=== PATIENT | female | born 1980 | race Caucasian/White ===

== ENCOUNTER 2020-08-22 00:17 | Emergency (ER) | payer MEDICAID, SELFPAY ==
[2020-08-22 00:20] VITALS: BP 100/55; BP 132/84; PULSE 76; PULSE 91; RESP 16; TEMP 35.2; O2SAT 95; O2SAT 99; BMI 35.3
--- NOTE | 2020-08-22 00:57 | ED.ALCOHOL ---
HPI - Alcohol General Chief Complaint: ETOH/Substance Use Stated Complaint: etoh Time Seen by Provider: 08/22/20 00:24 Source: patient Mode of arrival: EMS Limitations: no limitations History of Present Illness HPI narrative: Patient comes to emergency room via EMS. Patient was found intoxicated, sleeping in her car which was parked in a gas station. Patient states she did not want to drive, therefore she took a nap in her car. Somebody called police, woke the patient up, and was given a choice to coming to the emergency room versus being arrested, patient decided to come to the emergency room. Patient is calm, alert, cooperative complaint: alcohol intoxication Last drink: Hours (ago) Chronic alcohol use: No Recent trauma: No Associated symptoms: denies other symptoms Treatments prior to arrival: none Related Data Allergies Allergy/AdvReac Type Severity Reaction Status Date / Time No Known Allergies Allergy Unverified 07/30/20 16:29 Review of Systems Review of Systems: Constitutional: No Weight loss, No Fever, No Chills, No Night Sweats, No Fatigue, No Malaise, mild slurry speech ENT/Mouth: No Hearing loss, No Ear Pain, No Nasal Congestion, No Sinus Pain, No Hoarseness, No sore throat, No Rhinorrhea, No Swallowing Difficulty Eyes: No Eye Pain, No Swelling, No Redness, No Foreign Body, No Discharge, No Vision Changes Cardiovascular: No Chest Pain, No SOB, No Dyspnea on Exertion, No Orthopnea, No Edema, No Palpitations Respiratory: No Cough, No Sputum, No Wheezing, No Smoke Exposure, No Dyspnea Gastrointestinal: No Nausea, No Vomiting, No Diarrhea, No Constipation, No abdominal Pain, No Hematochezia, No Melena Genitourinary: no irregular bleeding, No Dysuria, No Urinary Frequency, No Hematuria, No Urinary Incontinence, No Urgency, No Flank Pain, No Urinary Flow Changes, No Hesitancy Musculoskeletal: No joint pain, No Myalgias, No Joint Swelling Skin: No Skin Lesions, No rash Neuro: No Weakness, No Numbness, No Paresthesias, No Loss of Consciousness, No Dizziness, No Headache Psych: No Anxiety/Panic, No Depression, No SI/HI/AH/VH, No Social Issues, Heme/Lymph: No Bruising, No Bleeding,No Lymphadenopathy Endocrine: No Polyuria, No Polydipsia, No Temperature Intolerance [facility] Past Medical History Medical History (Updated 10/10/20 @ 01:01 by Michelle Woodruff MD) No known health problems Social History Social History Advance Directives: No Advance Directives Information Provided: No Physical Exam Vital Signs and I&O and Narrative: Vital Signs and I&O: Vital Signs Temp 95.3 F L 08/22/20 00:20 Pulse 91 08/22/20 00:20 Resp 16 08/22/20 00:20 BP 100/55 L 08/22/20 00:20 Pulse Ox 95 08/22/20 00:20 Intake & Output 08/21/20 08/21/20 08/22/20 06:59 18:59 06:59 Weight 79.379 kg Body Mass Index 35.3 Appearance: Alert. Oriented X3. No acute distress, mild slurred speech, calm, cooperative Eyes: Pupils equal, round and reactive to light. ENT: Pharynx normal. Neck: Normal inspection. Neck supple. No lymph nodes noted. No crepitus CVS: Normal heart rate and rhythm. Pulses normal. Normal S1 and S2 Respiratory: No respiratory distress. Breath sounds normal. No Wheezing. No rales Abdomen: Soft and nontender. No rigidity. No distention. good BS x4 Skin: Skin warm and dry. Normal skin color. Normal skin turgor. Extremities: No lower extremity edema. No lower extremity edema. No Lacerations. No Rash Neuro: Oriented X 3. No motor deficit. No sensory deficit. Moving all extermities. . Discharge Plan Discharge Clinical Impression: Alcoholic intoxication Patient Disposition: Home, Self-Care Instructions: Alcohol Intoxication (ED) Additional Instructions: If you have any worsening symptoms, any new symptoms, please return to the emergency room or call 911
== END 2020-08-22 03:51 | disposition home or self-care (01) ==
PROVIDERS: Emergency Provider Emergency Medicine
DX: F10.129 Alcohol abuse with intoxication, unspecified (principal); Y90.9 Presence of alcohol in blood, level not specified
CPT/HCPCS: 99284

== ENCOUNTER 2023-10-30 12:57 | Observation (INO) | payer MEDICAID, SELFPAY ==
--- NOTE | ~2023-10-30 | XR_ITS ---
EXAMINATION: XR CHEST CLINICAL INFORMATION: Cough. COMPARISON: 03/03/2017. TECHNIQUE: 2 views of the chest were obtained. FINDINGS: No significant abnormality is noted involving the heart, lungs, mediastinum, bony thorax or soft tissues. XR/XR chest 2V IMPRESSION: Unremarkable examination.
--- NOTE | 2023-10-30 12:59 | ECG_ITS ---
Test Reason : CHEST PAIN Blood Pressure : / mmHG Vent. Rate : 091 BPM Atrial Rate : 091 BPM P-R Int : 138 ms QRS Dur : 074 ms QT Int : 368 ms P-R-T Axes : 074 048 025 degrees QTc Int : 452 ms Normal sinus rhythm Possible Left atrial enlargement Low voltage QRS Nonspecific T wave abnormality Abnormal ECG No previous ECGs available Referred By: Neeta Craig Electronically Signed By:ARABELLA WILKINSON MD
[2023-10-30 14:45] VITALS: BP 148/91; PULSE 89; RESP 16; TEMP 37.1; O2SAT 90; BMI 37.6
--- NOTE | 2023-10-30 14:47 | ED.GENADULT ---
HPI - General Adult General Chief complaint: Upper Respiratory Symptoms Stated complaint: chest pain Time Seen by Provider: 10/30/23 23:03 Source: patient Mode of arrival: ambulatory Limitations: no limitations History of Present Illness HPI narrative: Patient smoker with no diagnosis of emphysema came here from [place] with cough for last few days , worse for last few days especially in the a.m. with mucopurulent expectoration no fever no chills no chest pain no leg swelling history of same in the past off and on never used an inhaler in the past Related Data Previous Rx's Medication Instructions Recorded albuterol sulfate 90 mcg/actuation 2 puff inhalation Q4-6H PRN 10/31/23 aerosol inhaler (ProAir HFA) shortness of breath or wheezing #8.5 grams cefuroxime axetil 500 mg tablet 500 mg PO BID 10 days #20 tabs 10/31/23 codeine 10 mg-guaifenesin 100 mg/5 10 ml PO Q6H PRN cough #237 mL 10/31/23 mL oral liquid doxycycline hyclate 100 mg tablet 100 mg PO BID #20 tabs 10/31/23 prednisone 20 mg tablet 40 mg (2 x 20 mg) PO DAILY #10 tabs 10/31/23 Allergies Allergy/AdvReac Type Severity Reaction Status Date / Time No Known Allergies Allergy Unverified 07/30/20 16:29 Review of Systems Review of Systems: Yes all other systems are reviewed and are negative PMFSH Past Medical History Medical History No known health problems Social History Social History Alcohol intake: current Alcohol intake frequency: 0-2 drinks per day Alcohol type: hard liquor Smoked in Last 30 Days: Yes Use of substances other than those prescribed or required for medical reasons: No Advance Directives: No Advance Directives Information Provided: No Physical Exam ED Vital Signs: Vital Signs - 24 hr 10/30/23 14:45 10/30/23 15:27 10/30/23 22:59 Temperature 98.7 F 98.6 F Pulse Rate 89 79 82 Pulse Rate [Monitor] Respiratory Rate 16 22 H 20 Blood Pressure 148/91 H 128/64 Pulse Oximetry 90 L 92 Oxygen Delivery Method Room Air Room Air 10/30/23 23:07 10/30/23 23:07 10/30/23 23:38 Temperature Pulse Rate 82 Pulse Rate [Monitor] 86 Respiratory Rate 20 Blood Pressure Pulse Oximetry 93 Oxygen Delivery Method Room Air BMI result Body Mass Index 37.6 Appearance: Alert. Oriented X3. No acute distress. Eyes: No pallor or icterus ENT: Pharynx normal. Oral Mucosa moist Neck: Normal inspection. Neck supple. CVS: Normal heart rate and rhythm. Pulses normal. Respiratory: Mild respiratory distress. Equal air entry bilateral, bilateral wheezing and rhonchi Abdomen: Soft and nontender. Bowel sounds are present, no mass palpable, no CVA tenderness Skin: Skin warm and dry. Normal skin color. Normal skin turgor. Extremities: No lower extremity edema. No calf tenderness Neuro: Oriented X 3. No motor deficit. Course Course Course Narrative: This is an RME: Additional HPI, ROS, PE not included below will be deferred to primary provider. This is a 30-kcpd-wfe-female presenting to the emergency department with a complaint of congestion, cough, subjective fevers x 1 week. patient hypoxic at 88% > placed on 1.5L of O2. Plan: Chest xray, EKG, labs. Medications Administered Generic Name Dose Route Start Last Admin Trade Name Freq PRN Reason Stop Dose Admin Albuterol/Ipratropium 3 ml 10/31/23 00:53 10/31/23 01:02 Albuterol/Iprat 2.5/0.5mg 3 Ml Ampul.Neb INHALE 3 ml Q4H PRN Administration Wheezing Discontinued Medications Generic Name Dose Route Start Last Admin Trade Name Freq PRN Reason Stop Dose Admin Albuterol Sulfate 8 puff 10/30/23 15:22 10/30/23 15:25 Albuterol Sulfate 90 Mcg 8 Gm Inhaler INHALE 10/30/23 15:23 8 puff ONCE ONE Administration Cefuroxime Axetil 500 mg 10/30/23 23:11 10/30/23 23:33 Cefuroxime Axetil 500 Mg Tablet PO 10/30/23 23:12 500 mg ONCE ONE Administration Albuterol Sulfate 2.5 mg/ 0 mg 10/30/23 23:11 10/30/23 23:37 Albuterol/Ipratropium 3 ml INHALE 10/30/23 23:12 5 dose ONCE ONE Administration Doxycycline Monohydrate 100 mg 10/30/23 23:11 10/30/23 23:33 Doxycycline Monohydrate 100 Mg Capsule PO 10/30/23 23:12 100 mg ONCE ONE Administration Methylprednisolone Sodium Succinate 125 mg 10/30/23 23:11 10/30/23 23:33 Methylprednisolone Sod Succ 125 Mg/2 Ml Vial IVPUSH 10/30/23 23:12 125 mg ONCE ONE Administration Potassium Bicarbonate 25 meq 10/30/23 23:11 10/30/23 23:32 Potassium Bicarbonate/Cit Ac 25 Meq Tablet.Eff PO 10/30/23 23:12 25 meq ONCE ONE Administration Potassium Chloride 20 meq 10/30/23 23:11 10/30/23 23:32 Potassium Chloride Er 20 Meq Tab.Er.Prt PO 10/30/23 23:12 20 meq ONCE ONE Administration Medical Decision Making Medical Decision Making [facility] Narrative: Patient with acute bronchitis with his workup negative potassium level was 2.8 likely from nebulizing treatment patient was given p.o. potassium advised to stop smoking and take antibiotics prednisone and cough. Drops Patient pulse ox dropped to 86% on ambulation will admit patient for hypoxia with chronic lung disease Differential Diagnosis Differential Diagnoses: The differential diagnosis associated with the presentation includes Acute bronchitis/pneumonia/CHF/viral pneumonia Admission/Observation Consideration of admission/observation: Escalation of care including admission/observation considered Consult Healthcare Provider Management of the patient was discussed with: Hospitalist Lab Data [facility] Lab Attestation statement: I reviewed the patient's lab results. 10/30/23 15:47 10/30/23 15:47 Labs: Lab Results 10/30/23 10/30/23 Range/Units 15:40 15:47 WBC 11.8 H (4.8-10.8) X10*3/uL RBC 3.84 L (4.20-5.50) X10*6/uL Hgb 14.0 (12.0-16.0) g/dl Hct 40.6 (37.0-47.0) % MCV 105.7 H (80.0-98.0) fL MCH 36.5 H (27.0-33.0) pg MCHC 34.5 (31.0-35.0) g/dl RDW 12.5 (11.0-16.0) % Plt Count 418 H (160-400) X10*3/uL MPV 9.1 L (9.4-12.3) fL Immature Gran % (Auto) 0.6 H (0.0-0.4) % Neut % (Auto) 79.1 H (45-73) % Lymph % (Auto) 14.1 L (20-40) % [place] % (Auto) 5.9 (2-11) % Eos % (Auto) 0.1 (0-4) % Baso % (Auto) 0.2 (0-2) % Lymph # (Auto) 1.7 (1.2-4.9) X10*3/uL [place] # (Auto) 0.7 (0.1-1.2) X10*3/uL Eos # (Auto) 0.0 (0.0-0.4) X10*3/uL Baso # (Auto) 0.0 (0.0-0.2) X10*3/uL Abs Immat Gran (auto) 0.07 H (0.00-0.03) X10*3/uL Absolute Neuts (auto) 9.3 H (2.0-8.3) x10*3/uL Absolute Nucleated RBC 0.000 (0.0-0.012) X10*3/uL Nucleated RBC % (auto) 0.0 (0.0-0.2) /100WBC VBG pH 7.48 H (7.32-7.43) VBG pCO2 50 mmHg VBG pO2 41 mmHg VBG HCO3 37 H (22-26) mmol/L VBG O2 Saturation 66.0 % VBG Base Excess 12.1 mmol/L Sodium 140 (135-145) mmol/L Potassium 2.8 L (3.3-5.1) mmol/L Chloride 97 (96-108) mmol/L Carbon Dioxide 33 H (22-29) mmol/L Anion Gap 13 (12-20) BUN 5 L (9-16) mg/dL Creatinine 0.69 (0.5-1.4) mg/dL Estim Creat Clear Calc 94.9 Estimated GFR > 60 Random Glucose 99 (60-115) mg/dL Lactic Acid 1.4 (0.5-2.0) mmol/L Calcium 8.9 (8.4-10.2) mg/dL Magnesium 1.9 (1.6-2.6) mg/dL Total Bilirubin 0.8 (0.0-1.0) mg/dL Direct Bilirubin 0.3 (0.0-0.5) mg/dL AST 104 H (5-31) U/L ALT 151 H (0-31) U/L Alkaline Phosphatase 150 H (39-117) U/L Troponin I High Sens < 2.7 (<3.5-17.0) ng/L Total Protein 7.2 (6.5-8.0) g/dL Albumin 3.7 (3.5-5.0) g/dL Influenza Type A (PCR) NEGATIVE (Negative) Influenza Type B (PCR) NEGATIVE (Negative) RSV RNA Qual (PCR) NEGATIVE (Negative) SARS-CoV-2 RNA (RT-PCR) NEGATIVE (Negative) Independent Interpretation I performed an independent interpretation of an: Plain X-Ray Radiology Impression Discussion of test interpretation with radiology: I have reviewed the radiologist's reading. Critical Care Time Critical Care Time Critical Care Time: Yes Total Critical Care Time: 45 Attestation: The patient was critically ill with a high probability of imminent or life threatening deterioration. I spent greater than 50 minutes of discontinuous time evaluating the patient,delivering critical care at the bedside, discussing and evaluating pertinent data with consultants. Critical care time does not include time spent performing separately billable procedures or teaching. Total time spent performing critical care was 45 minutes. Discharge Plan Discharge Clinical Impression: Bronchitis, Acute hypoxemic respiratory failure Patient Disposition: Admitted As Inpatient
[2023-10-30] MEDS: Albuterol Sulfate 90 MCG 8 GM INHALER 8 PUFF INHALE (15:25)
[2023-10-30 15:27] VITALS: PULSE 79; RESP 22; O2SAT 95
[2023-10-30 15:54] LABS: MANUAL DIFF FLAG NO
[2023-10-30 15:58] LABS: Basophils Percent Auto 0.2 % (0-2); Eosinophils Percent Auto 0.1 % (0-4); Hematocrit 40.6 % (37.0-47.0); Imm Gran Abs Auto 0.07 X10*3/uL (0.00-0.03); Imm Gran Pct Auto 0.6 % (0.0-0.4); Lymphocytes Absolute Auto 1.7 X10*3/uL (1.2-4.9); Lymphocytes Percent Auto 14.1 % (20-40); Mean Corpuscular HGB Conc 34.5 g/dl (31.0-35.0); Mean Corpuscular Hemoglobin 36.5 pg (27.0-33.0); Mean Corpuscular Volume 105.7 fL (80.0-98.0); Mean Platelet Volume 9.1 fL (9.4-12.3); Monocytes Absolute Auto 0.7 X10*3/uL (0.1-1.2); Monocytes Percent Auto 5.9 % (2-11); Neutrophils Absolute Auto 9.3 x10*3/uL (2.0-8.3); Neutrophils Percent Auto 79.1 % (45-73); Platelet Count 418 X10*3/uL (160-400); Red Blood Count 3.84 X10*6/uL (4.20-5.50); Red Cell Distribution Width 12.5 % (11.0-16.0); White Blood Count 11.8 X10*3/uL (4.8-10.8)
[2023-10-30 15:58] LABS: Venous Blood Gas Refer to POC result
[2023-10-30 16:03] LABS: VBG Base Excess 12.1 mmol/L; VBG HCO3 37 mmol/L (22-26); VBG pCO2 50 mmHg; VBG pH 7.48 (7.32-7.43); VBG pO2 41 mmHg
[2023-10-30 16:08] LABS: Lactic Acid 1.4 mmol/L (0.5-2.0)
[2023-10-30 16:13] LABS: Alanine Aminotransferase 151 U/L (0-31); Albumin Level 3.7 g/dL (3.5-5.0); Alkaline Phosphatase 150 U/L (39-117); Anion Gap 13 (12-20); Aspartate Amino Transferase 104 U/L (5-31); Bilirubin Direct 0.3 mg/dL (0.0-0.5); Bilirubin Total 0.8 mg/dL (0.0-1.0); Blood Urea Nitrogen 5 mg/dL (9-16); Calcium 8.9 mg/dL (8.4-10.2); Carbon Dioxide 33 mmol/L (22-29); Chloride 97 mmol/L (96-108); Creatinine Clr Calc Pharmacy 94.9; Estimated Glomerular Filt Rate > 60; Glucose Random 99 mg/dL (60-115); Magnesium 1.9 mg/dL (1.6-2.6); Potassium 2.8 mmol/L (3.3-5.1); Sodium 140 mmol/L (135-145); Total Protein 7.2 g/dL (6.5-8.0)
[2023-10-30 16:21] LABS: Troponin-I High Sensitivity < 2.7 ng/L (<3.5-17.0)
[2023-10-30 16:33] LABS: Influenza A PCR NEGATIVE (Negative); Influenza B PCR NEGATIVE (Negative); Resp Syncy Virus RNA Qual PCR NEGATIVE (Negative); SARS COV2 PCR INHOUSE NEGATIVE (Negative)
[2023-10-30 22:59] VITALS: BP 128/64; PULSE 82; RESP 20; TEMP 37; O2SAT 92
[2023-10-30 23:07] VITALS: PULSE 86; O2SAT 93
[2023-10-30] MEDS: Potassium Chloride ER 20 MEQ TAB.ER.PRT PO (23:32)
[2023-10-30] MEDS: Potassium Bicarbonate/Cit AC 25 MEQ TABLET.EFF PO (23:32)
[2023-10-30] MEDS: Doxycycline Monohydrate 100 MG CAPSULE PO (23:33)
[2023-10-30] MEDS: methylPREDNISolone Sod Succ 125 MG/2 ML VIAL IVPUSH (23:33)
[2023-10-30] MEDS: cefuroxime axetiL 500 MG TABLET PO (23:33)
[2023-10-30] MEDS: Albuterol Sulfate 2.5 MG, Albuterol/Iprat 2.5/0.5MG 3 ML 3 ML INHALE (23:37)
[2023-10-30 23:38] VITALS: PULSE 82; RESP 20; O2SAT 93
--- NOTE | 2023-10-30 23:38 | PC.NURSE ---
pt medicated per jan. pt ambulatory with steady gait. duoneb started upon return from bathroom. call romero within reach.
[2023-10-31] VITALS (8 sets, daily range): BP systolic 115–131; BP diastolic 63–75; PULSE 80–112; RESP 16–24; TEMP 36.6–36.8; O2SAT 90–96
--- NOTE | 2023-10-31 00:56 | P.HPHOSP_ITS ---
History of Present Illness Date of Service: 10/31/23 Chief Complaint: Cough This is a 43-year-old female with no pertinent past medical history and not on prescription medications who presents to the emergency department for evaluation of cough, wheezing and shortness of breath. Patient states it started about 7 days prior to presentation. She started having nonproductive cough initially which subsequently became productive with clear sputum. Also had associated wheezing. Patient states she felt short of breath when she tried to walk around. Does not use inhaler at home. Never had a spirometry and does not have a efficiency engineer. Does not use any inhalers at home. Patient admits to smoking 1 pack of cigarettes per day and has been smoking for the last 25 years. No fever, chills, chest discomfort, palpitations, abdominal pain, changes in urinary or bowel habits. In the emergency department, patient was found to have wheezing and oxygen saturation dropped upon ambulation. Review of Systems 2 Constitutional: Constitutional: Reports no additional constitutional complaints Cardiovascular: Cardiovascular: Reports dyspnea on exertion Respiratory: Respiratory: Reports cough, Reports dyspnea on exertion and Reports wheezing Gastrointestinal: Gastrointestinal: Reports no additional gastrointestinal complaints Genitourinary: Genitourinary: Reports no additional female genitourinary complaints Allergic/Immunologic: Allergic/Immunologic: Reports wheezing [facility] Medical History (Updated 10/31/23 @ 05:43 by Jorge Baker MD) Tobacco use disorder No known health problems Social History Alcohol intake: current Alcohol intake frequency: 0-2 drinks per day Alcohol type: hard liquor Smoked in Last 30 Days: Yes Use of substances other than those prescribed or required for medical reasons: No Advance Directives: No Advance Directives Information Provided: No Meds Allergies Allergy/AdvReac Type Severity Reaction Status Date / Time No Known Allergies Allergy Unverified 07/30/20 16:29 Active Medications: Current Medications Potassium Chloride (Potassium Chloride Packet 20 Meq Packet) 40 meq PO ONCE ONE Stop: 10/31/23 00:54 Physical Exam 2 Vital Signs and Narrative: Vital Signs: Last Vital Signs Temp 98.6 F 10/30/23 22:59 Pulse 82 10/30/23 23:38 Resp 20 10/30/23 23:38 BP 128/64 10/30/23 22:59 Pulse Ox 93 10/30/23 23:07 O2 Del Method Room Air 10/30/23 23:07 BMI result Body Mass Index 37.6 Middle-aged female lying in bed in mild distress Neck supple, no JVD Regular rate and rhythm, S1-S2 heard Bilateral wheezing without crackles Abdomen soft nontender, no guarding, no rigidity Patient is awake, alert and oriented to self, place, time and person ; no focal motor deficit Psych: Normal mood No pedal edema Results Labs 10/31/23 05:04 10/31/23 05:04 Labs: Laboratory Results - last 24 hr 10/30/23 10/30/23 15:40 15:47 MCV 105.7 H MCH 36.5 H MCHC 34.5 RDW 12.5 Plt Count 418 H MPV 9.1 L Immature Gran % (Auto) 0.6 H Neut % (Auto) 79.1 H Lymph % (Auto) 14.1 L [place] % (Auto) 5.9 Eos % (Auto) 0.1 Baso % (Auto) 0.2 Lymph # (Auto) 1.7 [place] # (Auto) 0.7 Eos # (Auto) 0.0 Baso # (Auto) 0.0 Abs Immat Gran (auto) 0.07 H Absolute Neuts (auto) 9.3 H Absolute Nucleated RBC 0.000 Nucleated RBC % (auto) 0.0 VBG pH 7.48 H VBG pCO2 50 VBG pO2 41 VBG HCO3 37 H VBG O2 Saturation 66.0 VBG Base Excess 12.1 Anion Gap 13 Estim Creat Clear Calc 94.9 Estimated GFR > 60 Random Glucose 99 Lactic Acid 1.4 Calcium 8.9 Magnesium 1.9 Total Bilirubin 0.8 Direct Bilirubin 0.3 AST 104 H ALT 151 H Alkaline Phosphatase 150 H Total Protein 7.2 Albumin 3.7 Influenza Type A (PCR) NEGATIVE Influenza Type B (PCR) NEGATIVE RSV RNA Qual (PCR) NEGATIVE SARS-CoV-2 RNA (RT-PCR) NEGATIVE Imaging Radiologist's Impressions: Impressions Chest X-Ray 10/30/23 15:17 IMPRESSION: Unremarkable examination. Assessment and Plan (1) Acute hypoxemic respiratory failure: Status: Acute (2) Tobacco use disorder: Status: Acute Plan This is a 43-year-old female with no pertinent past medical history and not on prescription medications who presents to the emergency department for evaluation of cough, wheezing and shortness of breath. #. Acute ambulatory hypoxemia due to acute exacerbation of obstructive lung disease: Will admit patient and initiate scheduled and p.r.n. DuoNebs. Initiating systemic steroids. Initiating azithromycin for pleiotropy. Likely has underlying COPD, undiagnosed and will need outpatient pulmonology follow-up. Monitor oxygen saturation and maintain greater than 88%. #. Hypokalemia: Repleted #. Tobacco use disorder: Counseled regarding cessation. Ordered nicotine patch while in the hospital #. Elevated liver enzymes: Outpatient follow-up Quality Stroke Does the patient have a stroke diagnosis?: No VTE Prior VTE?: No VTE Risk Level:: Medical - moderate - high VTE Device Contraindication: Treatment Not Indicated VTE Drug Contraindication: N/A - Med Ordered
[2023-10-31] MEDS: Albuterol/Iprat 2.5/0.5MG 3 ML AMPUL.NEB INHALE ×5 (01:02→19:53)
--- NOTE | 2023-10-31 01:37 | PC.NURSE ---
LATE ENTRY: This RN went to d/c pt approx 0020. pt denied cp/sob however sats ranging 88-90% on RA. Dr. Trujillo notified; to trial ambulatory o2. upon ambulations sats 85-87% on RA however pt denied sob/dyspnea. pt placed on 3L NC sats 95%. pt resting comfortably in stretcher. Dr. Trujillo at bedside.
[2023-10-31] MEDS: Azithromycin 500 MG in 0.9 % Sodium Chloride 250 ML 125 MG IV ×2 (02:26→21:28)
[2023-10-31] MEDS: Potassium Chloride Packet 20 MEQ PACKET 40 MEQ PO (02:26)
[2023-10-31] MEDS: Nicotine 14 MG PATCH.TD24 TRANSDERMA (05:13)
[2023-10-31 05:14] LABS: Basophils Percent Auto 0.1 % (0-2); Hematocrit 38.6 % (37.0-47.0); Hemoglobin 13.3 g/dl (12.0-16.0); Imm Gran Abs Auto 0.04 X10*3/uL (0.00-0.03); Imm Gran Pct Auto 0.5 % (0.0-0.4); Lymphocytes Absolute Auto 0.4 X10*3/uL (1.2-4.9); Lymphocytes Percent Auto 5.8 % (20-40); MANUAL DIFF FLAG SCAN; Mean Corpuscular HGB Conc 34.5 g/dl (31.0-35.0); Mean Corpuscular Hemoglobin 36.5 pg (27.0-33.0); Mean Platelet Volume 9.2 fL (9.4-12.3); Monocytes Absolute Auto 0.1 X10*3/uL (0.1-1.2); Monocytes Percent Auto 1.6 % (2-11); Platelet Count 354 X10*3/uL (160-400); Red Blood Count 3.64 X10*6/uL (4.20-5.50); Red Cell Distribution Width 12.5 % (11.0-16.0); SCAN SMEAR FLAG 1; White Blood Count 7.6 X10*3/uL (4.8-10.8)
[2023-10-31 05:32] LABS: Anion Gap 16 (12-20); Blood Urea Nitrogen 5 mg/dL (9-16); Carbon Dioxide 27 mmol/L (22-29); Chloride 101 mmol/L (96-108); Estimated Glomerular Filt Rate > 60; Glucose Random 207 mg/dL (60-115); Sodium 140 mmol/L (135-145)
[2023-10-31 05:36] LABS: SLIDE REVIEW VERIFIED
--- NOTE | 2023-10-31 08:08 | PHA.MEDREC ---
Pharmacy Consult ? Medication Reconciliation Pharmacy has completed the medication reconciliation,spoke with patient, stated she does not take any medications at home but was taking dayquil and nyquil previously over the counter.
[2023-10-31] MEDS: Enoxaparin Sodium 40 MG/0.4 ML SYRINGE SUBCUT (08:23)
[2023-10-31] MEDS: methylPREDNISolone Sod Succ 40 MG/ML VIAL IVPUSH ×2 (08:23→21:29)
[2023-10-31] MEDS: ondansetron HCL 4 MG/2 ML VIAL IVPUSH (08:23)
[2023-10-31] MEDS: 0.9 % Sodium Chloride Flush 3 ML SYRINGE IVFLUSH ×2 (08:24→18:49)
--- NOTE | 2023-10-31 08:38 | PC.NURSE ---
continues to ambulate to bathroom independently with strong, steady gait. resting quietly in room, on room air patient ranges 91-94%. eating breakfast at this time, offering no other complaints. call romero within reach.
--- NOTE | 2023-10-31 09:26 | PM.EVENT ---
Event Note Date of Service: 10/31/23 Event Note: Seen and evaluated still mildly wheezy and O2 sat 90 on room air , feels better thought continue steroids, nebulizers and as needed O2 Time Spent With Patient Time: Total time managing care of this patient today ____ minutes.
--- NOTE | 2023-10-31 12:24 | PC.NURSE ---
continues to rest quietly in room, patient requesting medication for anxiety at this time. otherwise offering no complaints, call romero within reach.
[2023-10-31] MEDS: Acetaminophen 325 MG TABLET 650 MG PO (17:40)
--- NOTE | 2023-10-31 20:24 | PC.NURSE ---
resp at bedside for breathing tx. nad at this time. pt aware of plan of care denies questions/concerns. call romero within reach.
--- NOTE | 2023-10-31 21:30 | PC.NURSE ---
unable to flush iv; removed. iv established 20G R. AC. iv abx infusing. pt medicated per jan. pt reports during afternoon had more sx of withdrawal and reported however no orders were established. ciwa 1 at this time. pt reported sx resolved however feels tremors. pt states does not need meds at this time will let this RN know if needed. gingerale given per request. pt denies other questions concerns at this time.
--- NOTE | 2023-10-31 23:15 | PC.NURSE ---
Addendum entered by Janette Mcmullen 11/01/23 00:45: pt medicated per jan. educated on phenobarbital. Original Note: jacielwa 4. Dr. Baker notified.
[2023-11-01] MEDS: PHENobarbitaL 30 MG TABLET 60 MG PO (00:15)
[2023-11-01] MEDS: 0.9 % Sodium Chloride Flush 3 ML SYRINGE IVFLUSH (00:16)
[2023-11-01 01:46] VITALS: BP 119/66; PULSE 81; RESP 16; O2SAT 92
[2023-11-01] MEDS: Acetaminophen 325 MG TABLET 650 MG PO (04:46)
[2023-11-01 07:56] VITALS: BP 116/62; PULSE 82; RESP 16; TEMP 36.8; O2SAT 94
[2023-11-01] MEDS: Albuterol/Iprat 2.5/0.5MG 3 ML AMPUL.NEB INHALE (08:17)
[2023-11-01 08:18] VITALS: PULSE 78; RESP 18; O2SAT 95
--- NOTE | 2023-11-01 09:13 | PM.DS ---
DS: Providers Provider Date of Service: 11/01/23 Date of admission: 10/31/23 00:54 Primary care physician: None Physician DS: Diagnosis Discharge Diagnosis (1) Acute hypoxemic respiratory failure: Status: Resolved (2) Tobacco use disorder: Status: Deleted DS: Summary Hospital Course Hospital Course: from initial hpi: 43F PMH nicotine dependence, etoh dependence, obesity, and not on prescription medications who presents to the emergency department for evaluation of cough, wheezing and shortness of breath. Patient states it started about 7 days prior to presentation. She started having nonproductive cough initially which subsequently became productive with clear sputum. Also had associated wheezing. Patient states she felt short of breath when she tried to walk around. Does not use inhaler at home. Never had a spirometry and does not have a order picker/assembler. Does not use any inhalers at home. Patient admits to smoking 1 pack of cigarettes per day and has been smoking for the last 25 years. No fever, chills, chest discomfort, palpitations, abdominal pain, changes in urinary or bowel habits. In the emergency department, patient was found to have wheezing and oxygen saturation dropped upon ambulation. hospital course: Patient was admitted for transient acute hypoxic respiratory failure due to acute bronchitis, possible new diagnosis of COPD with acute decompensation, this should be followed up as outpatient. Patient was quickly weaned off oxygen and her wheezing improved. Her shortness of breath significantly improved and was able to tolerate room air. On discharge she will continue prednisone course and antibiotics. For nicotine dependence she will be given Nicoderm. For alcohol dependence abstinence is recommended. For obesity weight loss recommended. Patient is feeling better will be discharged home. Time Attestation Discharge coordination time: Greater than 30 minutes Quality: Safe Use of Opioids Does Pt have an Active Cancer Diagnosis on the Problem List?: No Quality: Stroke Does the patient have a stroke diagnosis?: No Physical Exam Vital Signs: Vital Signs: Last Vital Signs Temp 98.2 F 11/01/23 07:56 Pulse 78 11/01/23 08:18 Resp 18 11/01/23 08:18 BP 116/62 11/01/23 07:56 Pulse Ox 94 11/01/23 07:56 O2 Del Method Room Air 11/01/23 07:56 O2 Flow Rate 2 11/01/23 01:46 BMI result Body Mass Index 37.6 General: AO X 3, no acute distress Resp: diminished bilateral, no accessory muscles used CVS: S1,S2,RRR GI: soft, non tender, non distended Neuro: motor grossly intact, alert Psych: appropriate affect, appropriate insight DS: Data Data Completed and Pending Labs on day of discharge: Preliminary micro results at discharge 10/31/23 04:54 Blood Culture - Preliminary Blood - Venous No growth after 24 hours. 10/30/23 15:47 Blood Culture - Preliminary Blood - Venous No growth after 24 hours. Discharge Plan Discharge Anticipated Discharge Date/Time: 11/01/23 09:10 Patient Disposition: Home, Self-Care Referrals: Physician,None [Primary Care Provider] - 1 Week Discharge Medications: New cefuroxime axetil 500 mg tablet 500 mg PO BID 10 Days Qty: 20 0RF albuterol sulfate [ProAir HFA] 90 mcg/actuation HFA aerosol inhaler 2 puff inhalation Q4-6H PRN (Reason: shortness of breath or wheezing) Qty: 8.5 0RF doxycycline hyclate 100 mg tablet 100 mg PO BID Qty: 20 0RF prednisone 20 mg tablet 40 mg PO DAILY Qty: 10 0RF codeine-guaifenesin 10-100 mg/5 mL liquid 10 ml PO Q6H PRN (Reason: cough) Qty: 237 0RF nicotine 21 mg/24 hr patch 24 hour 1 patch transdermal DAILY Qty: 7 0RF Discharge Orders: Discharge Order (Routine); Ordered 11/01/23 Ordered By: Azael Stroud Diet: Advance to usual diet Activity on Discharge: As tolerated Stand Alone Forms: Patient Portal Discharge page Activity Restrictions/Additional Instructions: Stop smoking Use albuterol inhaler 2 puffs every 4-6 hours as needed Cough drops as prescribed Prednisone and antibiotic as prescribed Follow with PCP Care Plan Goals: recovery Health Concerns: bronchitis, smoking, etoh, obesity Plan of Treatment: prednisone, abx, nicoderm, stop etoh, weight loss Assessment: see above Patient Instructions: Acute Bronchitis (ED)
--- NOTE | 2023-11-01 09:48 | MHC.CM.PN ---
PT REPORTS SHE JUST MOVED BACK FROM [place] AND IS STAYING WITH FRIENDS SHE HAS NOT YET CONNECTED WITH A PCP AND DECLINES TO COMPLETE A HCP SHE HAS NO SERVICES AND NO DME OBSERVATION NOTICE DELIVERED PT WILL DC HOME TODAY WITH NO SERVICES SHE HAS ARRANGED HER OWN TRANSPORTATION
== END 2023-11-01 19:45 | disposition home or self-care (01) ==
LOC: HO.ED 10-31 00:19 → HO.EDOVER 10-31 00:58
PROVIDERS: Physician Assistant Medical; Admitting Provider Student in an Organized Health Care Education/Training Program; Emergency Provider Internal Medicine; Visit Provider Internal Medicine
DX: J96.01 Acute respiratory failure with hypoxia (principal); J40 Bronchitis, not specified as acute or chronic; E87.6 Hypokalemia; R07.9 Chest pain, unspecified; R05.9 Cough, unspecified; R79.89 Other specified abnormal findings of blood chemistry; Z20.822 Contact with and (suspected) exposure to COVID-19; Z20.828 Contact with and (suspected) exposure to other viral communicable diseases; Z72.0 Tobacco use
CPT/HCPCS: 0241U; 36415; 71046; 80048; 80076; 82803; 83605; 83735; 84484; 85025; 87040; 93005; 94640; 96365; 96366; 96372; 96375; 99221; 99285; J0456; J1650; J2405; J2920; J2930

== ENCOUNTER → 2023-10-30 12:59 | Outpatient (BNV) | payer MEDICAID, SELFPAY | PROVIDERS: Visit Provider Internal Medicine Cardiovascular Disease | DX: R07.9 Chest pain, unspecified (principal); R94.31 Abnormal electrocardiogram [ECG] [EKG] | CPT/HCPCS: 93010 ==

== ENCOUNTER → 2023-10-31 00:54 | Outpatient (BNV) | payer MEDICAID, SELFPAY | PROVIDERS: Admitting Provider Student in an Organized Health Care Education/Training Program; Emergency Provider Internal Medicine; Visit Provider Student in an Organized Health Care Education/Training Program | DX: J96.01 Acute respiratory failure with hypoxia (principal); F17.200 Nicotine dependence, unspecified, uncomplicated | CPT/HCPCS: 99222; 99239; 99499 ==

== ENCOUNTER 2024-07-02 16:34 | Emergency (ER) | payer MEDICAID, SELFPAY ==
--- NOTE | ~2024-07-02 | CT_ITS ---
EXAMINATION: CT ELBOW WITHOUT CONTRAST, LEFT CLINICAL INFORMATION: Abscess COMPARISON: None. TECHNIQUE: Multidetector volumetric images of the left elbow were obtained without administration of contrast. Multiplanar reformatted images in coronal and sagittal orientations were submitted. This CT examination was performed using dose optimization techniques as appropriate, variously including the following: *Automated exposure control *Adjustment of mA and/or kV according to patient size (this includes techniques or standardized protocols for targeted exams where dose is matched to indication/reason for exam; i.e. extremities or head) *Use of iterative reconstruction technique DLP: 142 mGy-cm FINDINGS: There is diffuse cellulitis and skin thickening with superficial soft tissue/skin irregularity posterior laterally at the level of the olecranon suspicious for open wound. There is a small partially visualized fluid collection in the musculature of the forearm overlying the distal radius the portion that is visualized measures 1.6 x 1.5 x 1.1 cm. No fracture, osteonecrosis, or suspicious osseous lesion. No elbow joint effusion. The musculature about the elbow is normal in bulk. CT/CT elbow LT w IV con IMPRESSION: 1. Diffuse cellulitis and skin thickening with superficial soft tissue/skin irregularity posterior laterally at the level of the olecranon suspicious for open wound. 2. Small partially visualized fluid collection in the musculature of the forearm overlying the distal radius suspicious for abscess. Electronically signed by: Lesley Leyva MD 07/02/2024 09:36 PM EDT
--- NOTE | ~2024-07-02 | XR_ITS ---
EXAMINATION: XR ELBOW, LEFT CLINICAL INFORMATION: Fall, open wound COMPARISON: None available. TECHNIQUE: AP, lateral, and oblique views of the left elbow. FINDINGS: No acute fracture or dislocation. No joint effusion or significant degenerative change disease. Persist [place] soft tissue swelling as well as a large subcutaneous air collection along the lateral border of the elbow. XR/XR elbow LT 2V IMPRESSION: Soft tissue swelling and subcutaneous air collection. Electronically signed by: Lesley Leyva MD 07/02/2024 05:52 PM EDT
[2024-07-02 17:00] VITALS: BP 116/61; PULSE 120; RESP 18; TEMP 38.3; O2SAT 97; BMI 33.4
--- NOTE | 2024-07-02 17:34 | ED_ITS ---
HPI - General Adult General Chief complaint: General Medical Stated complaint: left elbow wound/self treating/infected Time Seen by Provider: 07/02/24 17:37 Related Data Previous Rx's ?Medication ?Instructions ?Recorded albuterol sulfate 90 mcg/actuation 2 puff inhalation Q4-6H PRN 10/31/23 aerosol inhaler (ProAir HFA) shortness of breath or wheezing #8.5 grams cefuroxime axetil 500 mg tablet 500 mg PO BID 10 days #20 tabs 10/31/23 codeine 10 mg-guaifenesin 100 mg/5 10 ml PO Q6H PRN cough #237 mL 10/31/23 mL oral liquid doxycycline hyclate 100 mg tablet 100 mg PO BID #20 tabs 10/31/23 prednisone 20 mg tablet 40 mg (2 x 20 mg) PO DAILY #10 tabs 10/31/23 nicotine 21 mg/24 hr daily 1 patch transdermal DAILY #7 ea 11/01/23 transdermal patch Allergies Allergy/AdvReac Type Severity Reaction Status Date / Time No Known Allergies Allergy Verified 07/02/24 17:02 [facility] Past Medical History Medical History (Updated 07/02/24 @ 22:19 by SARAH Capps) EtOH dependence Tobacco use disorder No known health problems Social History Social History Alcohol intake: current Alcohol intake frequency: 0-2 drinks per day Alcohol type: hard liquor Patient Tobacco Use Status: Current someday Tobacco user Advance Directives: No Advance Directives Information Provided: No Do you have a plan to hurt others: No Plan service: No Physical Exam ED Vital Signs: Vital Signs - 24 hr 07/02/24 17:00 07/02/24 19:46 07/02/24 20:55 Temperature 101.0 F H 100.1 F Pulse Rate 120 H 96 98 Respiratory Rate 18 20 Blood Pressure 116/61 100/59 L Pulse Oximetry 97 94 Oxygen Delivery Method Room Air Room Air BMI result Body Mass Index 33.4 Course Course Course Narrative: RME, this is a rapid medical exam performed by Jaiden Cesar please refer to primary provider for complete H&P- 43-year-old female presents for evaluation of left elbow pain, redness, swelling. She reports falling 3 weeks ago and sustaining a wound to the left elbow. She was unwilling to unwrap the wound of the left elbow but she has cellulitis extending down towards the left wrist. She is febrile to 101.0, she is tachy to 120. She was brought back to room 2. Septic workup ordered Medications Administered Discontinued Medications Generic Name Dose Route Start Last Admin Trade Name Tameka PRN Reason Stop Dose Admin Acetaminophen 975 mg 07/02/24 17:45 07/02/24 18:01 Acetaminophen 325 Mg Tablet PO 07/02/24 17:46 975 mg ONCE ONE Administration Diphtheria/Tetanus/Acell Pertussis 0.5 ml 07/02/24 17:57 07/02/24 18:12 Diphth,Pertus(Acell),Tet Adult 0.5 Ml Syringe IM 07/02/24 17:58 0.5 ml .ONCE ONE Administration Sodium Chloride 2,177.25 mls @ 2,177.25 mls/hr 07/02/24 17:44 07/02/24 21:12 Ns 30 ml/kg infuse over 1 hr (2177.25 ml) 07/02/24 18:43 Infused IV Infusion .Q1H STA Vancomycin HCl 1,000 mg/ 270 mls @ 270 mls/hr 07/02/24 17:49 07/02/24 20:03 Sodium Chloride IV 07/02/24 18:48 Infused PREOP ONE Infusion Piperacillin Sod/Tazobactam 50 mls @ 100 mls/hr 07/02/24 17:55 07/02/24 18:24 Sod 3.375 gm/ Sodium Chloride IV 07/02/24 18:24 Infused ONCE ONE Infusion Sodium Chloride 1,000 mls @ 999 mls/hr 07/02/24 21:00 07/02/24 22:50 Ns IV 07/02/24 22:00 Infused .Q1H1M BENEDICTO Infusion Iohexol 100 ml 07/02/24 18:40 07/02/24 18:41 Iohexol 350 Mg/Ml 100 Ml Infus..Btl IV 07/02/24 18:41 85 ml ONCE ONE Administration Morphine Sulfate 8 mg 07/02/24 17:50 07/02/24 18:05 Morphine Sulfate 10 Mg/Ml Cartridge IVPUSH 07/02/24 17:51 8 mg ONCE ONE Administration Protocol Medical Decision Making Lab Data 07/02/24 17:46 07/02/24 17:46 Labs: Lab Results 07/02/24 07/02/24 07/02/24 Range/Units 17:44 17:45 17:46 WBC 20.6 H (4.8-10.8) X10*3/uL RBC 3.95 L (4.20-5.50) X10*6/uL Hgb 13.8 (12.0-16.0) g/dl Hct 39.5 (37.0-47.0) % MCV 100.0 H (80.0-98.0) fL MCH 34.9 H (27.0-33.0) pg MCHC 34.9 (31.0-35.0) g/dl RDW 12.6 (11.0-16.0) % Plt Count 341 (160-400) X10*3/uL MPV 8.7 L (9.4-12.3) fL Immature Gran % (Auto) 0.6 H (0.0-0.4) % Neut % (Auto) 86.7 H (45-73) % Lymph % (Auto) 5.3 L (20-40) % [place] % (Auto) 7.2 (2-11) % Eos % (Auto) 0.0 (0-4) % Baso % (Auto) 0.2 (0-2) % Lymph # (Auto) 1.1 L (1.2-4.9) X10*3/uL [place] # (Auto) 1.5 H (0.1-1.2) X10*3/uL Eos # (Auto) 0.0 (0.0-0.4) X10*3/uL Baso # (Auto) 0.0 (0.0-0.2) X10*3/uL Abs Immat Gran (auto) 0.13 H (0.00-0.03) X10*3/uL Absolute Neuts (auto) 17.8 H (2.0-8.3) x10*3/uL Absolute Nucleated RBC 0.000 (0.0-0.012) X10*3/uL Nucleated RBC % (auto) 0.0 (0.0-0.2) /100WBC ESR 63 H (0-20) MM/HR Sodium 132 L (135-145) mmol/L Potassium 3.7 (3.3-5.1) mmol/L Chloride 98 (96-108) mmol/L Carbon Dioxide 24 (22-29) mmol/L Anion Gap 14 (12-20) BUN 12 (9-16) mg/dL Creatinine 1.07 (0.5-1.4) mg/dL Estim Creat Clear Calc 57.3 Estimated GFR 56 Fasting Glucose 116 H (60-99) mg/dL Lactic Acid 1.3 (0.5-2.0) mmol/L Calcium 9.7 D (8.4-10.2) mg/dL Total Bilirubin 1.0 (0.0-1.0) mg/dL AST 30 (5-31) U/L ALT 24 (0-31) U/L Alkaline Phosphatase 125 H (39-117) U/L C-Reactive Protein 22.82 H (< or = 0.50) mg/dL Total Protein 7.7 (6.5-8.0) g/dL Albumin 3.7 (3.5-5.0) g/dL Influenza Type A (PCR) NEGATIVE (Negative) Influenza Type B (PCR) NEGATIVE (Negative) RSV RNA Qual (PCR) NEGATIVE (Negative) SARS-CoV-2 RNA (RT-PCR) NEGATIVE (Negative) Discharge Plan Discharge Clinical Impression: Sepsis, Open wound of left upper arm, Abscess Patient Disposition: Xfer Other Transfer Details: Patient requires a higher level of care and assessment by the plastic surgery service Additional Instructions: You are being transferred to [facility] for plastic surgery consult regard to your left upper extremity infection. Prescriptions: No Action cefuroxime axetil 500 mg tablet 500 mg PO BID 10 Days Qty: 20 0RF albuterol sulfate [ProAir HFA] 90 mcg/actuation HFA aerosol inhaler 2 puff inhalation Q4-6H PRN (Reason: shortness of breath or wheezing) Qty: 8.5 0RF doxycycline hyclate 100 mg tablet 100 mg PO BID Qty: 20 0RF prednisone 20 mg tablet 40 mg PO DAILY Qty: 10 0RF codeine-guaifenesin 10-100 mg/5 mL liquid 10 ml PO Q6H PRN (Reason: cough) Qty: 237 0RF nicotine 21 mg/24 hr patch 24 hour 1 patch transdermal DAILY Qty: 7 0RF Print Language: [place]
[2024-07-02 17:52] LABS: MANUAL DIFF FLAG NO
[2024-07-02 18:00] LABS: Basophils Percent Auto 0.2 % (0-2); Hematocrit 39.5 % (37.0-47.0); Hemoglobin 13.8 g/dl (12.0-16.0); Imm Gran Abs Auto 0.13 X10*3/uL (0.00-0.03); Imm Gran Pct Auto 0.6 % (0.0-0.4); Lymphocytes Absolute Auto 1.1 X10*3/uL (1.2-4.9); Lymphocytes Percent Auto 5.3 % (20-40); Mean Corpuscular HGB Conc 34.9 g/dl (31.0-35.0); Mean Corpuscular Hemoglobin 34.9 pg (27.0-33.0); Mean Platelet Volume 8.7 fL (9.4-12.3); Monocytes Absolute Auto 1.5 X10*3/uL (0.1-1.2); Monocytes Percent Auto 7.2 % (2-11); Neutrophils Absolute Auto 17.8 x10*3/uL (2.0-8.3); Neutrophils Percent Auto 86.7 % (45-73); Platelet Count 341 X10*3/uL (160-400); Red Blood Count 3.95 X10*6/uL (4.20-5.50); Red Cell Distribution Width 12.6 % (11.0-16.0); White Blood Count 20.6 X10*3/uL (4.8-10.8)
[2024-07-02] MEDS: 0.9 % Sodium Chloride 2,177.25 ML 2177.25 ML IV (18:00)
[2024-07-02] MEDS: Acetaminophen 325 MG TABLET 975 MG PO (18:01)
[2024-07-02] MEDS: Piperacillin Sodium/Tazobactam 3.375 GM in 0.9 % Sodium Chloride 50 ML IV (18:02)
[2024-07-02] MEDS: Morphine Sulfate 10 MG/ML CARTRIDGE 8 MG IVPUSH (18:05)
[2024-07-02 18:09] LABS: Lactic Acid 1.3 mmol/L (0.5-2.0)
[2024-07-02 18:12] LABS: C Reactive Protein 22.82 mg/dL (< or = 0.50)
[2024-07-02] MEDS: Diphth,Pertus(ACell),Tet Adult 0.5 ML SYRINGE IM (18:12)
[2024-07-02 18:14] LABS: Alanine Aminotransferase 24 U/L (0-31); Albumin Level 3.7 g/dL (3.5-5.0); Alkaline Phosphatase 125 U/L (39-117); Anion Gap 14 (12-20); Aspartate Amino Transferase 30 U/L (5-31); Blood Urea Nitrogen 12 mg/dL (9-16); Calcium 9.7 mg/dL (8.4-10.2); Carbon Dioxide 24 mmol/L (22-29); Chloride 98 mmol/L (96-108); Creatinine Clr Calc Pharmacy 57.3; Estimated Glomerular Filt Rate 56; Glucose Fasting 116 mg/dL (60-99); Potassium 3.7 mmol/L (3.3-5.1); Sodium 132 mmol/L (135-145); Total Protein 7.7 g/dL (6.5-8.0)
[2024-07-02] MEDS: vancomycin HCL 1,000 MG in 0.9 % Sodium Chloride 250 ML 270 MG IV (18:24)
[2024-07-02 18:35] LABS: Influenza A PCR NEGATIVE (Negative); Influenza B PCR NEGATIVE (Negative); Resp Syncy Virus RNA Qual PCR NEGATIVE (Negative); SARS COV2 PCR INHOUSE NEGATIVE (Negative)
[2024-07-02 18:38] LABS: Erythrocyte Sedimentation Rate 63 MM/HR (0-20)
[2024-07-02] MEDS: iohexoL 350 MG/ML 100 ML INFUS..BTL IV (18:41)
--- NOTE | 2024-07-02 19:38 | ED_ITS ---
HPI - General Adult General Chief complaint: General Medical Stated complaint: left elbow wound/self treating/infected Time Seen by Provider: 07/02/24 17:37 Source: patient Limitations: no limitations History of Present Illness ED Provider: Krista Cotter PA-C HPI narrative: 43-year-old female with history of alcohol abuse, tobacco abuse presents with left upper extremity infection. Patient states 2 weeks ago she fell landing on her left arm. Patient sustained a laceration, she did not seek medical attention. Over the past 2 weeks, the wound has become or extensive, spanning inferiorly to the forearm. Over the past few days, patient has noticed pus draining from numerous sites. Associated fevers, overlying erythema, warmth and significant pain. Patient can not range the elbow. Patient does not know if her tetanus vaccine is up-to-date. Patient states she has gone through alcohol withdrawal in the past, however has not had seizure activity. Related Data Previous Rx's ?Medication ?Instructions ?Recorded albuterol sulfate 90 mcg/actuation 2 puff inhalation Q4-6H PRN 10/31/23 aerosol inhaler (ProAir HFA) shortness of breath or wheezing #8.5 grams cefuroxime axetil 500 mg tablet 500 mg PO BID 10 days #20 tabs 10/31/23 codeine 10 mg-guaifenesin 100 mg/5 10 ml PO Q6H PRN cough #237 mL 10/31/23 mL oral liquid doxycycline hyclate 100 mg tablet 100 mg PO BID #20 tabs 10/31/23 prednisone 20 mg tablet 40 mg (2 x 20 mg) PO DAILY #10 tabs 10/31/23 nicotine 21 mg/24 hr daily 1 patch transdermal DAILY #7 ea 11/01/23 transdermal patch Allergies Allergy/AdvReac Type Severity Reaction Status Date / Time No Known Allergies Allergy Verified 07/02/24 17:02 Review of Systems 2 Review of Systems: Yes all other systems are reviewed and are negative Constitutional: Constitutional: Reports fever(s) Cardiovascular: Cardiovascular: Denies chest pain and Denies dyspnea Respiratory: Respiratory: Denies cough and Denies dyspnea Musculoskeletal: Musculoskeletal: Reports arthralgias and Reports joint swelling PMFSH Past Medical History Attestation statement: The following information was validated with the patient. Medical History (Updated 07/02/24 @ 22:19 by SARAH Capps) EtOH dependence Tobacco use disorder No known health problems Social History Social History Alcohol intake: current Alcohol intake frequency: 0-2 drinks per day Alcohol type: hard liquor Patient Tobacco Use Status: Current someday Tobacco user Advance Directives: No Advance Directives Information Provided: No Do you have a plan to hurt others: No Plan Patient : No service: No Physical Exam ED Vital Signs: Vital Signs - 24 hr 07/02/24 17:00 07/02/24 19:46 07/02/24 20:55 Temperature 101.0 F H 100.1 F Pulse Rate 120 H 96 98 Respiratory Rate 18 20 Blood Pressure 116/61 100/59 L Pulse Oximetry 97 94 Oxygen Delivery Method Room Air Room Air BMI result Body Mass Index 33.4 Const Other: Alert, appears older than stated age Orientation/consciousness: patient oriented x3 Resp Other: Nonlabored respiration Cardio Other: Normal peripheral perfusion Skin Other: Warm dry no rash Neuro General: patient oriented x3, no focal motor deficits and CN's II-XI intact bilaterally Extrem Other: There is a large necrotic wound deep to subcu tissue over the lateral aspect of the left upper extremity, begin superior to the elbow, tract inferiorly to the forearm. Active purulence noted. Overlying warmth, erythema, swelling and extremely tender to palpation. Patient is holding the elbow in partial flexion, she can not range the joint. Psych Other: Calm cooperative Course Reevaluation(s) Reevaluation #1: Patient spiked a temp, giving Toradol 15 mg IV Time: 23:14 Consultations Consultation #1: Page the orthopedic service, Lakia Christine, she will be reaching out to her attending, Dr. Yeager. I sent him images of the patient's wound. Time: 18:04 Consultation #2: Hearing back from the Orthopedic Service, they feel the patient requires hand/plastics. They are concerned about the inability to close the wound if a joint washout was required. They are recommending transfer to [facility] Time: 18:16 Consultation #3: [facility] for consult...... They do not have plastics, they can not accept the transfer Time: 22:21 Additional Consultation(s): 11:05 p.m., I have reached out to [facility], the patient will be an ED to ED transfer, the accepting physician is Dr. Girard Medications Administered Discontinued Medications Generic Name Dose Route Start Last Admin Trade Name Tameka PRN Reason Stop Dose Admin Acetaminophen 975 mg 07/02/24 17:45 07/02/24 18:01 Acetaminophen 325 Mg Tablet PO 07/02/24 17:46 975 mg ONCE ONE Administration Diphtheria/Tetanus/Acell Pertussis 0.5 ml 07/02/24 17:57 07/02/24 18:12 Diphth,Pertus(Acell),Tet Adult 0.5 Ml Syringe IM 07/02/24 17:58 0.5 ml .ONCE ONE Administration Sodium Chloride 2,177.25 mls @ 2,177.25 mls/hr 07/02/24 17:44 07/02/24 21:12 Ns 30 ml/kg infuse over 1 hr (2177.25 ml) 07/02/24 18:43 Infused IV Infusion .Q1H STA Vancomycin HCl 1,000 mg/ 270 mls @ 270 mls/hr 07/02/24 17:49 07/02/24 20:03 Sodium Chloride IV 07/02/24 18:48 Infused PREOP ONE Infusion Piperacillin Sod/Tazobactam 50 mls @ 100 mls/hr 07/02/24 17:55 07/02/24 18:24 Sod 3.375 gm/ Sodium Chloride IV 07/02/24 18:24 Infused ONCE ONE Infusion Sodium Chloride 1,000 mls @ 999 mls/hr 07/02/24 21:00 07/02/24 22:50 Ns IV 07/02/24 22:00 Infused .Q1H1M BENEDICTO Infusion Iohexol 100 ml 07/02/24 18:40 07/02/24 18:41 Iohexol 350 Mg/Ml 100 Ml Infus..Btl IV 07/02/24 18:41 85 ml ONCE ONE Administration Morphine Sulfate 8 mg 07/02/24 17:50 07/02/24 18:05 Morphine Sulfate 10 Mg/Ml Cartridge IVPUSH 07/02/24 17:51 8 mg ONCE ONE Administration Protocol Medical Decision Making Medical Decision Making MDM Narrative: 43-year-old female with history of alcohol abuse, tobacco abuse presents with left upper extremity infection. Patient states 2 weeks ago she fell landing on her left arm. Patient sustained a laceration, she did not seek medical attention. Over the past 2 weeks, the wound has become or extensive, spanning inferiorly to the forearm. Over the past few days, patient has noticed pus draining from numerous sites. Associated fevers, overlying erythema, warmth and significant pain. Patient can not range the elbow. Patient does not know if her tetanus vaccine is up-to-date. Patient states she has gone through alcohol withdrawal in the past, however has not had seizure activity. Problem: Alcohol abuse History: Per patient I have considered the following differential diagnoses: Sepsis, septic joint, cellulitis, purulent cellulitis, necrotizing fasciitis, open fracture Plan: Labs have been ordered per sepsis protocol. We will be giving weight based IV fluids, 30 mix per kg of normal saline. Starting empiric vancomycin and Zosyn, giving Tylenol for the fever. She will get morphine for her pain. Updating her tetanus. We will be reaching out to the orthopedic service, she will likely require a washout in the OR. A screening x-ray was ordered from triage, however she requires advanced imaging, obtaining a CT scan. Thought about neck fascia, however she has had symptoms that have been progressing for 2 weeks, it was not rapid onset. I have independently reviewed the following tests: Labs: Significant leukocytosis with left shift, mild hyponatremia, lactate 1.3, viral panel negative for COVID/RSV, influenza X-ray elbow: No obvious fracture or dislocation CT left elbow: per [facility] via a fax Diffuse cellulitis and skin thickening with superficial soft tissue/skin irregularity posterior laterally at the level of the olecranon suspicious for open wound. Small partially visualized fluid collection in the musculature of the forearm overlying the distal radius suspicious for abscess Patient now has range of motion of the elbow after being medicated Differential Diagnosis Differential Diagnoses: The differential diagnosis associated with the presentation includes Lab Data 07/02/24 17:46 07/02/24 17:46 Labs: Lab Results 07/02/24 07/02/24 07/02/24 Range/Units 17:44 17:45 17:46 WBC 20.6 H (4.8-10.8) X10*3/uL RBC 3.95 L (4.20-5.50) X10*6/uL Hgb 13.8 (12.0-16.0) g/dl Hct 39.5 (37.0-47.0) % MCV 100.0 H (80.0-98.0) fL MCH 34.9 H (27.0-33.0) pg MCHC 34.9 (31.0-35.0) g/dl RDW 12.6 (11.0-16.0) % Plt Count 341 (160-400) X10*3/uL MPV 8.7 L (9.4-12.3) fL Immature Gran % (Auto) 0.6 H (0.0-0.4) % Neut % (Auto) 86.7 H (45-73) % Lymph % (Auto) 5.3 L (20-40) % [place] % (Auto) 7.2 (2-11) % Eos % (Auto) 0.0 (0-4) % Baso % (Auto) 0.2 (0-2) % Lymph # (Auto) 1.1 L (1.2-4.9) X10*3/uL [place] # (Auto) 1.5 H (0.1-1.2) X10*3/uL Eos # (Auto) 0.0 (0.0-0.4) X10*3/uL Baso # (Auto) 0.0 (0.0-0.2) X10*3/uL Abs Immat Gran (auto) 0.13 H (0.00-0.03) X10*3/uL Absolute Neuts (auto) 17.8 H (2.0-8.3) x10*3/uL Absolute Nucleated RBC 0.000 (0.0-0.012) X10*3/uL Nucleated RBC % (auto) 0.0 (0.0-0.2) /100WBC ESR 63 H (0-20) MM/HR Sodium 132 L (135-145) mmol/L Potassium 3.7 (3.3-5.1) mmol/L Chloride 98 (96-108) mmol/L Carbon Dioxide 24 (22-29) mmol/L Anion Gap 14 (12-20) BUN 12 (9-16) mg/dL Creatinine 1.07 (0.5-1.4) mg/dL Estim Creat Clear Calc 57.3 Estimated GFR 56 Fasting Glucose 116 H (60-99) mg/dL Lactic Acid 1.3 (0.5-2.0) mmol/L Calcium 9.7 D (8.4-10.2) mg/dL Total Bilirubin 1.0 (0.0-1.0) mg/dL AST 30 (5-31) U/L ALT 24 (0-31) U/L Alkaline Phosphatase 125 H (39-117) U/L C-Reactive Protein 22.82 H (< or = 0.50) mg/dL Total Protein 7.7 (6.5-8.0) g/dL Albumin 3.7 (3.5-5.0) g/dL Influenza Type A (PCR) NEGATIVE (Negative) Influenza Type B (PCR) NEGATIVE (Negative) RSV RNA Qual (PCR) NEGATIVE (Negative) SARS-CoV-2 RNA (RT-PCR) NEGATIVE (Negative) Discharge Plan Discharge Clinical Impression: Sepsis, Open wound of left upper arm, Abscess Patient Disposition: Xfer Other Transfer Details: Patient requires a higher level of care and assessment by the plastic surgery service Additional Instructions: You are being transferred to [facility] for plastic surgery consult regard to your left upper extremity infection. Prescriptions: No Action cefuroxime axetil 500 mg tablet 500 mg PO BID 10 Days Qty: 20 0RF albuterol sulfate [ProAir HFA] 90 mcg/actuation HFA aerosol inhaler 2 puff inhalation Q4-6H PRN (Reason: shortness of breath or wheezing) Qty: 8.5 0RF doxycycline hyclate 100 mg tablet 100 mg PO BID Qty: 20 0RF prednisone 20 mg tablet 40 mg PO DAILY Qty: 10 0RF codeine-guaifenesin 10-100 mg/5 mL liquid 10 ml PO Q6H PRN (Reason: cough) Qty: 237 0RF nicotine 21 mg/24 hr patch 24 hour 1 patch transdermal DAILY Qty: 7 0RF Print Language: Belgian
[2024-07-02 19:46] VITALS: PULSE 96; RESP 20; TEMP 37.8; O2SAT 94
[2024-07-02 20:55] VITALS: BP 100/59; PULSE 98
[2024-07-02] MEDS: 0.9 % Sodium Chloride 1,000 ML 999 ML IV (21:49)
--- NOTE | 2024-07-02 22:43 | PM.IMHP ---
[facility] Medical History (Updated 07/02/24 @ 22:19 by SARAH Capps) EtOH dependence Tobacco use disorder No known health problems Social History Alcohol intake: current Alcohol intake frequency: 0-2 drinks per day Alcohol type: hard liquor Patient Tobacco Use Status: Current someday Tobacco user Advance Directives: No Advance Directives Information Provided: No Do you have a plan to hurt others: No Plan service: No Meds Allergies Allergy/AdvReac Type Severity Reaction Status Date / Time No Known Allergies Allergy Verified 07/02/24 17:02 Physical Exam Vital Signs and Narrative: Vital Signs: Last Vital Signs Temp 100.1 F 07/02/24 19:46 Pulse 98 07/02/24 20:55 Resp 20 07/02/24 19:46 BP 100/59 L 07/02/24 20:55 Pulse Ox 94 07/02/24 19:46 O2 Del Method Room Air 07/02/24 19:46 BMI result Body Mass Index 33.4 Results Labs 07/02/24 17:46 07/02/24 17:46 Labs: Laboratory Results - last 24 hr 07/02/24 07/02/24 07/02/24 17:44 17:45 17:46 MCV 100.0 H MCH 34.9 H MCHC 34.9 RDW 12.6 Plt Count 341 MPV 8.7 L Immature Gran % (Auto) 0.6 H Neut % (Auto) 86.7 H Lymph % (Auto) 5.3 L [place] % (Auto) 7.2 Eos % (Auto) 0.0 Baso % (Auto) 0.2 Lymph # (Auto) 1.1 L [place] # (Auto) 1.5 H Eos # (Auto) 0.0 Baso # (Auto) 0.0 Abs Immat Gran (auto) 0.13 H Absolute Neuts (auto) 17.8 H Absolute Nucleated RBC 0.000 Nucleated RBC % (auto) 0.0 ESR 63 H Anion Gap 14 Estim Creat Clear Calc 57.3 Estimated GFR 56 Fasting Glucose 116 H Lactic Acid 1.3 Calcium 9.7 D Total Bilirubin 1.0 AST 30 ALT 24 Alkaline Phosphatase 125 H C-Reactive Protein 22.82 H Total Protein 7.7 Albumin 3.7 Influenza Type A (PCR) NEGATIVE Influenza Type B (PCR) NEGATIVE RSV RNA Qual (PCR) NEGATIVE SARS-CoV-2 RNA (RT-PCR) NEGATIVE Quality VTE VTE Risk Level:: Medical - moderate - high VTE Device Contraindication: Treatment Not Indicated VTE Drug Contraindication: N/A - Med Ordered
[2024-07-02] MEDS: Ketorolac Tromethamine 15 MG/ML VIAL IVPUSH (23:47)
[2024-07-03 00:21] VITALS: BP 100/58; PULSE 82; RESP 18; TEMP 38.1; O2SAT 96
== END 2024-07-03 00:22 | disposition short-term general hospital (02) ==
PROVIDERS: Physician Assistant; Emergency Provider Emergency Medicine
DX: S41.102A Unspecified open wound of left upper arm, initial encounter (principal); A41.9 Sepsis, unspecified organism; L02.414 Cutaneous abscess of left upper limb; R50.9 Fever, unspecified; R11.0 Nausea; M25.522 Pain in left elbow; F17.200 Nicotine dependence, unspecified, uncomplicated; W26.9XXA Contact with unspecified sharp object(s), initial encounter; Y93.89 Activity, other specified; Y92.89 Other specified places as the place of occurrence of the external cause; Y99.8 Other external cause status; Z23 Encounter for immunization; Z03.818 Encounter for observation for suspected exposure to other biological agents ruled out
CPT/HCPCS: 0241U; 36415; 73070; 73201; 80053; 83605; 85025; 85652; 86140; 87040; 87070; 87077; 87147; 87186; 87205; 90471; 90715; 96361; 96374; 96375; 99285; J1885; J2270; J2543; J3370; Q9967